=== PATIENT | female | born 1990 | race Caucasian/White ===

== ENCOUNTER 2018-08-07 21:14 | Emergency (ER) | payer MEDICAID, OTHER ==
[~2018-08-07] VITALS: Ht 160 cm; Wt 77.3 kg
[2018-08-07 22:55] LABS: INFLUENZA TYPE A NEGATIVE FOR TYPE A (NEGATIVE); INFLUENZA TYPE B NEGATIVE FOR TYPE B (NEGATIVE)
[2018-08-07 23:15] VITALS: BP 119/71
== END 2018-08-07 23:16 | disposition home or self-care (01) ==
LOC: EMS 21:15
DX: J11.1 Influenza due to unidentified influenza virus with other respiratory manifestations (principal); J00 Acute nasopharyngitis [common cold]
CPT/HCPCS: 87804

== ENCOUNTER 2018-12-10 19:20 | Emergency (ER) | payer OTHER ==
[~2018-12-10] VITALS: Ht 162.6 cm; Wt 90.0 kg
[2018-12-10 20:23] VITALS: BP 119/68
[2018-12-10] MEDS ORDERED: MAALOX/LIDOCAINE/NYSTATIN SUSP 5 ML ORAL.SYG PO ONE (21:00)
== END 2018-12-10 21:17 | disposition home or self-care (01) ==
LOC: EMS 19:21
DX: J03.90 Acute tonsillitis, unspecified (principal); B00.9 Herpesviral infection, unspecified

== ENCOUNTER 2018-12-29 13:58 | Emergency (ER) | payer OTHER ==
[~2018-12-29] VITALS: Ht 162.6 cm; Wt 86.4 kg
[2018-12-29] MEDS ORDERED: IBUPROFEN 600 MG TABLET PO ONE (15:45)
[2018-12-29] MEDS ORDERED: AMOX TR/POT CLAV 875 MG/125 MG TABLET PO ONE (15:45)
[2018-12-29 16:02] VITALS: BP 131/67
== END 2018-12-29 16:02 | disposition home or self-care (01) ==
LOC: EMS 13:58
DX: K02.9 Dental caries, unspecified (principal)

== ENCOUNTER 2022-01-12 14:06 | Emergency (ER) | payer OTHER ==
[~2022-01-12] VITALS: Ht 160 cm; Wt 59.1 kg
[2022-01-12 14:10] VITALS: BP 132/88
== END 2022-01-12 14:58 | disposition left against medical advice (07) ==
LOC: EMS 14:09
DX: R11.2 Nausea with vomiting, unspecified (principal); Z53.21 Procedure and treatment not carried out due to patient leaving prior to being seen by health care provider

== ENCOUNTER 2022-01-15 14:14 | Emergency (ER) | payer OTHER ==
[~2022-01-15] VITALS: Ht 160 cm; Wt 90.0 kg
[2022-01-15 14:54] VITALS: BP 114/78
[2022-01-15 17:03] LABS: BASOPHILS % (AUTO) 0.4 % (0.0-2.0); EOSINOPHILS % (AUTO) 0.7 % (1.0-6.0); HEMATOCRIT 38.4 % (36-46); HEMOGLOBIN 12.7 g/dL (12.0-16.0); LYMPHOCYTES # (AUTO) 5.1 K/uL (1.0-4.8); LYMPHOCYTES % (AUTO) 36.2 % (22.0-44.0); MEAN CORPUSCULAR HGB CONC 33.2 G/dL (31.0-37.0); MEAN CORPUSCULAR VOLUME 88 fL (80-100); MONOCYTES # (AUTO) 1.1 K/uL (0.1-1.0); MONOCYTES % (AUTO) 7.6 % (2.0-9.0); NEUTROPHILS # (AUTO) 7.7 K/uL (1.8-7.7); NEUTROPHILS % (AUTO) 55.1 % (40.0-70.0); PLATELET COUNT (AUTO) 342 K/uL (150-450); RED BLOOD CELL COUNT(AUTO) 4.39 MIL/uL (4.00-5.20); RED CELL DISTRIBUTION WIDTH 13.3 % (11.5-14.5)
[2022-01-15 17:11] LABS: ANION GAP 9 mmol/L (8-16); CALCIUM, TOTAL 8.5 mg/dL (8.8-10.5); CARBON DIOXIDE 27 mmol/L (22-29); CHLORIDE 101 mmol/L (98-107); CREATININE 0.76 mg/dL (0.60-1.30); GLOMERULAR FILTR. RATE CALC > 60 mL/min (>60); GLUCOSE,RANDOM 100 mg/dL (70-110); POTASSIUM 3.6 mmol/L (3.5-5.1); SODIUM SERUM 137 mmol/L (136-145); UREA NITROGEN, BLOOD 6 mg/dL (7-18)
[2022-01-15 17:17] LABS: ALANINE AMINOTRANSFERASE 62 U/L (12-78); ALBUMIN 3.7 g/dL (3.4-5.0); ALKALINE PHOSPHATASE 65 U/L (46-116); ASPARTATE AMINOTRANSFERASE 88 U/L (15-37); BILIRUBIN,TOTAL 0.6 mg/dL (0.1-1.0); LIPASE 69 U/L (73-393); TOTAL PROTEIN, SERUM 7.1 g/dL (6.4-8.2)
== END 2022-01-15 18:55 | disposition home or self-care (01) ==
LOC: EMS 14:14
DX: G89.11 Acute pain due to trauma (principal); R10.9 Unspecified abdominal pain; R11.10 Vomiting, unspecified; Z87.898 Personal history of other specified conditions; Z90.49 Acquired absence of other specified parts of digestive tract; Z98.890 Other specified postprocedural states
CPT/HCPCS: 80053; 83690; 85025; 99283

== ENCOUNTER 2022-06-29 18:34 | Emergency (ER) | payer OTHER | END 2022-06-29 20:39 | disposition left against medical advice (07) | LOC: EMS 20:39 | DX: Z53.21 Procedure and treatment not carried out due to patient leaving prior to being seen by health care provider (principal) ==